=== PATIENT | male | born 1965 ===

== ENCOUNTER 2016-11-09 06:07 | Inpatient (IN) | payer BC, OTHER ==
--- NOTE | 2016-11-09 07:36 | C.PDOC ---
History Of Present Illness 51 yo male w/PMHx of HTN, C-spine herniated disc come inf or evaluation of headache, neck pain, dizziness, intermittent CP, " generalized weakness " developed for past few days. Pt sts, " wake up in AM feeling in pain and weak". Pt admits, taking HTN medication ( carvedilol last dose at 11PM yesterday and Lozartan last dose today at 3AM), and pain medication started few weeks ago- Naproxyn, Flexeril given by PMD for pain. Pt admits, previous hx of neck pain " after had fall accident year ago". Otherwise, pt denies fever, chills, denies worse headache of life, visual changes, focal deficits, denies weakness to B/L LEs, SOB, dyspnea, diaphoresis, palpitation, abd. pain, N/V/D, UTI sx, denies saddle anesthesia, incontinence. Ambulate to ED for evaluation, appears in pain. Time Seen by Provider: 11/09/16 07:19 Chief Complaint (Nursing): Headache History Per: Patient History/Exam Limitations: no limitations Onset/Duration Of Symptoms: Hrs Current Symptoms Are (Timing): Still Present Quality: "Pain" Preceeding Symptoms: denies: Visual Disturbances Associated Symptoms: denies: Blurred Vision, Nausea, Vomiting, Extremity Weakness Recent travel outside of the [place]: No Past Medical History Reviewed: Historical Data, Nursing Documentation, Vital Signs Vital Signs: Last Vital Signs Temp 97.9 F 11/09/16 15:50 Pulse 64 11/09/16 15:50 Resp 18 11/09/16 15:50 BP 117/64 11/09/16 15:50 Pulse Ox 99 11/09/16 15:50 - Medical History PMH: HTN, Hypercholesterolemia Surgical History: Appendectomy Family History: States: Unknown Family Hx - Social History Hx Tobacco Use: No Hx Alcohol Use: No Hx Substance Use: No - Immunization History Hx Tetanus Toxoid Vaccination: No Hx Influenza Vaccination: No Hx Pneumococcal Vaccination: No Review Of Systems Except As Marked, All Systems Reviewed And Found Negative. Constitutional: Positive for: Weakness. Negative for: Fever, Chills Cardiovascular: Negative for: Chest Pain Respiratory: Negative for: Cough, Shortness of Breath, Wheezing Musculoskeletal: Positive for: Neck Pain Skin: Negative for: Rash Neurological: Positive for: Headache, Dizziness. Negative for: Weakness, Numbness Physical Exam - Physical Exam Appears: Well, No Acute Distress Skin: Normal Color, Warm, Dry, No Ecchymosis Head: Normacephalic Eye(s): bilateral: PERRL Ear(s): Bilateral: Normal Nose: No Flaring, No Discharge Oral Mucosa: Moist, No Drooling Throat: No Erythema, No Exudate, No Drooling Neck: Trachea Midline, No Midline Cervical Tenderness, Paracervical Tenderness ( Right sided lateral neck tenderness along trapezium muscle with mod muscle spasm. No midline tenderness. no palpable deformity, no skin changes.), No Step Off Deformity, Supple Cardiovascular: Rhythm Regular, No JVD, Other ((-) carotid bruits B/L) Respiratory: No Decreased Breath Sounds, No Accessory Muscle Use, No Stridor, No Wheezing Gastrointestinal/Abdominal: No Tenderness, No Distention, No Guarding Back: No CVA Tenderness Extremity: No Pedal Edema, No Deformity, No Swelling Neurological/Psych: Oriented x3, Normal Speech, Normal Motor, Normal Sensation, Normal Reflexes ED Course And Treatment - Laboratory Results Result Diagrams: 11/09/16 07:52 11/09/16 07:52 Lab Interpretation: Normal ECG: Interpreted By Me, Viewed By Me (and ED attending) ECG Rhythm: Sinus Bradycardia Interpretation Of ECG: Sinus kanu@48/min, NAD, no acute T wave or ST-T changes O2 Sat by Pulse Oximetry: 100 Pulse Ox Interpretation: Normal - CT Scan/US CT head Other Rad Studies (CT/US): Radiology Report Reviewed CT/US Interpretation: Accession No. : [id number]. Patient Name / ID : DENNIS VELASQUEZ / [id number]. Exam Date : 11/09/2016 08:07:41 ( Approved ). Study Comment : Sex / Age : M / 51Y. Creator : Adele Lombardi. Dictator : Adele Lombardi. Supervisor [place] : Disease Case Manager : Adele العراقي. Approver2 : Report Date : 11/09/2016 08:33:50. My Comment : . PROCEDURE: CT HEAD WITHOUT CONTRAST. HISTORY: headache, dizziness. COMPARISON: A prior CT head report 08/27/2010 is noted. This was reported is unremarkable. Those images are however not available to me in the PAC system at this time. TECHNIQUE: Axial computed tomography images were obtained through the head/brain without intravenous contrast. Radiation dose: Total exam DLP = 882 mGy-cm. This CT exam was performed using one or more of the following dose reduction techniques: Automated exposure control, adjustment of the mA and/or kV according to patient size, and/or use of iterative reconstruction technique. FINDINGS: HEMORRHAGE: No intracranial hemorrhage. BRAIN: No mass effect or edema. No atrophy or chronic microvascular ischemic changes. VENTRICLES: Unremarkable. No hydrocephalus. CALVARIUM: Unremarkable. PARANASAL SINUSES: Minimal ethmoidal sinus mucosal thickening. No air-fluid levels. MASTOID AIR CELLS: Unremarkable as visualized. No inflammatory changes. OTHER FINDINGS: Atherosclerotic calcification - vertebral basilar arteries. IMPRESSION: No intracranial hemorrhage or mass effect . Trace ethmoidal sinus inflammatory changes. Vertebrobasilar arterial atherosclerotic like vascular calcification C-spine Other Rad Studies (CT/US): Radiology Report Reviewed CT/US Interpretation: IMPRESSION: Cervical spondylosis and 1 disc disease - most pronounced at C4-5 and C5-6. No spinal stenosis. No fracture or lytic lesion. Cervical spine straightening -positioning and/or spasm Progress Note: On re-eavluation, pt remained stable, not in any apparent distress. Afebrile, hemodynamicaly stable. non-toxic. neuorlogicaly intact. Blood work review and appears without acute abnormalities. EKG- Sinus kanu @ [address] head review and appears abnormal (+)VB atherosclerotic ds. Case discussed with ED attending [facility]. Case discussed with and admission arranged to tele. resident notified about admission, per request. Disposition - Disposition Disposition: HOSPITALIZED Disposition Time: 08:57 Condition: STABLE - Clinical Impression Clinical Impression: Symptomatic bradycardia, Arterial atherosclerosis - PA / WELFARE SPECIALIST / Resident Statement MD/DO has reviewed & agrees with the documentation as recorded. - Scribe Statement The provider has reviewed the documentation as recorded by the Scribe SM All medical record entries made by the Scribe were at my direction and personally dictated by me. I have reviewed the chart and agree that the record accurately reflects my personal performance of the history, physical exam, medical decision making, and the department course for this patient. I have also personally directed, reviewed, and agree with the discharge instructions and disposition.
[2016-11-09] MEDS ORDERED: diaZEpam 10 mg/2 ml Inj IVP STA (07:38)
[2016-11-09] MEDS ORDERED: diaZEpam 10 mg/2 ml Inj ONE (07:50)
[2016-11-09] MEDS ORDERED: Sodium Chloride 0.9% 1,000 ML IV ONE (08:03)
[2016-11-09 08:04] LABS: BASO % 0.4 % (0.0-2.0); EOS # 0.1 K/uL (0.0-0.7); HEMATOCRIT 42.2 % (35.0-51.0); LYMPH # 2.4 K/uL (1.0-4.3); LYMPH % 38.4 % (20.0-40.0); MEAN CELL VOLUME 86.6 fL (80.0-94.0); MEAN CORPUSCULAR HEMOGLOBIN 30.3 pg (27.0-31.0); MEAN PLATELET VOLUME 8.6 fL (7.2-11.7); MONO # 0.7 K/uL (0.0-0.8); MONO % 10.5 % (0.0-10.0); RED CELL DISTRIBUTION WIDTH 13.8 % (11.5-14.5); WHITE BLOOD COUNT 6.3 K/uL (4.8-10.8)
[2016-11-09 08:13] LABS: CHLORIDE 98 mmol/L (98-107); SODIUM 135 mmol/L (132-148)
[2016-11-09 08:14] LABS: POTASSIUM 3.7 mmol/L (3.6-5.2); URINE BILIRUBIN NEGATIVE (NEGATIVE); URINE BLOOD NEGATIVE (NEGATIVE); URINE COLOR Straw (YELLOW); URINE GLUCOSE (UA) NORMAL (Normal); URINE KETONE NEGATIVE (NEGATIVE); URINE LEUKOCYTE ESTERASE NEG Leu/uL (Negative); URINE PROTEIN NEGATIVE (NEGATIVE); URINE UROBILINOGEN NORMAL mg/dL (0.2-1.0)
[2016-11-09 08:16] LABS: ALB/GLOB RATIO 1.2 (1.0-2.1); ALKALINE PHOSPHATASE 50 U/L (38-126); ALT/SGPT 53 U/L (21-72); AST/SGOT 40 U/L (17-59); BILIRUBIN,TOTAL 0.8 mg/dL (0.2-1.3); BLOOD UREA NITROGEN 13 mg/dL (9-20); CARBON DIOXIDE 28 mmol/L (22-30); GFR AFRICAN-AMERICAN > 60; TOTAL PROTEIN 7.9 g/dL (6.3-8.3)
[2016-11-09 08:17] LABS: CALCIUM 9.1 mg/dl (8.6-10.4); GLUCOSE,RANDOM 110 mg/dL (75-110)
--- NOTE | 2016-11-09 08:41 | CT ---
PROCEDURE: CT HEAD WITHOUT CONTRAST. HISTORY: headache, dizziness COMPARISON: A prior CT head report 08/27/2010 is noted. This was reported is unremarkable. Those images are however not available to me in the PAC system at this time TECHNIQUE: Axial computed tomography images were obtained through the head/brain without intravenous contrast. Radiation dose: Total exam DLP = 882 mGy-cm. This CT exam was performed using one or more of the following dose reduction techniques: Automated exposure control, adjustment of the mA and/or kV according to patient size, and/or use of iterative reconstruction technique. FINDINGS: HEMORRHAGE: No intracranial hemorrhage. BRAIN: No mass effect or edema. No atrophy or chronic microvascular ischemic changes. VENTRICLES: Unremarkable. No hydrocephalus. CALVARIUM: Unremarkable. PARANASAL SINUSES: Minimal ethmoidal sinus mucosal thickening. No air-fluid levels MASTOID AIR CELLS: Unremarkable as visualized. No inflammatory changes. OTHER FINDINGS: Atherosclerotic calcification - vertebral basilar arteries IMPRESSION: No intracranial hemorrhage or mass effect . Trace ethmoidal sinus inflammatory changes Vertebrobasilar arterial atherosclerotic like vascular calcification
[2016-11-09 08:47] LABS: THYROID STIMULATING HORMONE 4.99 mIU/L (0.46-4.68)
[2016-11-09] MEDS ORDERED: Sodium Chloride 0.9% 1,000 ML ONE ×2 (09:06→11:01)
--- NOTE | 2016-11-09 09:13 | CT ---
PROCEDURE: CT Cervical Spine without contrast HISTORY: Neck pain COMPARISON: None available. TECHNIQUE: Axial computed tomography images were obtained of the cervical spine without the use of intravenous contrast. Coronal and sagittal reformatted images were created and reviewed. Radiation dose: Total exam DLP = 486 mGy-cm. This CT exam was performed using one or more of the following dose reduction techniques: Automated exposure control, adjustment of the mA and/or kV according to patient size, and/or use of iterative reconstruction technique. FINDINGS: VERTEBRAE: No fracture. Cervical lordotic straightening. No subluxation. No destructive bony lesion. Endplate spondylosis C4-5 C5-6 DISCS/SPINAL CANAL/NEURAL FORAMINA: No significant central canal or neural foraminal stenosis. C4-5 and C5-6 disc space narrowing. PARASPINAL SOFT TISSUES: Anterior C3-4 intervertebral disc bordering ossification a nearly anterior bridging osteophyte here OTHER FINDINGS: None. IMPRESSION: Cervical spondylosis and 1 disc disease -most pronounced at C4-5 and C5-6. No spinal stenosis No fracture or lytic lesion. Cervical spine straightening -positioning and/or spasm.
--- NOTE | 2016-11-09 09:33 | RAD ---
HISTORY: dizziness COMPARISON: 05/07/2015 TECHNIQUE: Chest PA and lateral FINDINGS: LUNGS: No active pulmonary disease. PLEURA: No significant pleural effusion identified. No pneumothorax apparent. CARDIOVASCULAR: Normal. OSSEOUS STRUCTURES: Thoracic spondylosis VISUALIZED UPPER ABDOMEN: Normal. OTHER FINDINGS: None. IMPRESSION: No active disease.
[2016-11-09] MEDS: Sodium Chloride 0.9% 1,000 ML IV SCH ×2 (11:03→22:21)
--- NOTE | 2016-11-09 11:11 | CP.PCM.HP ---
History of Present Illness - History of Present Illness History of Present Illness: CC: Head pressure and fatigue HPI: 51 y/o male with hx of HTN, high cholesterol, vit D deficiency, and chronic neck pain presents to ED with complaints of head pressure and feelings of extreme fatigue. Patient stated the head pressure has occurred in the overnight hours, around 3am, for the past three to four nights, lasting for about two hours. Patient denies headache, dizziness, or LOC. Pt states he believes it is due to his blood pressure and it resolves with taking his medication. Pt also complains of extreme fatigue that has lasted for the past three months. Pt went to his PMD two months ago and was only found to have Vitamin D deficiency. Pt stated that his thyroid hormone levels were normal at the time. Pt complains of nausea and constipation. Pt states he has not had a bowel movement in 3-4 days. Pt denies Chest Pain, SOB, cough, abdominal pain, paresthesia, urinary frequency, dysuria, vomiting, and diarrhea. PMD: Dr. Kiko Hernandez HX: HTN, High cholesterol, Vit D deficiency, chronic neck pain Allergies: Levaquin (urticaria) Surgeries: -Appendectomy 11 yrs old -Hand surgery 4 months ago Family HX: -Brother of Lymphoma -Daughter with thyroid cancer Social HX: -Works at a [email or web address] -Has two children -Denies tobacco, alcohol, or illicit drug use Home Medications: -Naproxen 500mg PO PRN -Cyclobenzaprine 10mg BID PRN -Losartan/HCTZ 25/100mg PO daily -Carvedilol 12.5mg PO BID -Vitamin D 5000 U Present on Admission - Present on Admission Any Indicators Present on Admission: No History of DVT/PE: No History of Uncontrolled Diabetes: No Urinary Catheter: No Decubitus Ulcer Present: No Past Patient History - Infectious Disease Hx of Infectious Diseases: None - Past Social History Smoking Status: Never Smoked - CARDIAC Hx Hypercholesterolemia: Yes Hx Hypertension: Yes - GASTROINTESTINAL Other/Comment: patient stated he had endo and colonoscopy done in past with results of: "Inflammed stomach" gastritis??? - PSYCHIATRIC Hx Substance Use: No - SURGICAL HISTORY Hx Appendectomy: Yes - ANESTHESIA Hx Anesthesia: Yes Hx Anesthesia Reactions: No Meds Allergies/Adverse Reactions: Allergies Allergy/AdvReac Type Severity Reaction Status Date / Time levofloxacin [From Levaquin] Allergy Intermediate Verified 11/09/16 06:28 Results - Vital Signs Recent Vital Signs: Last Vital Signs Temp 97.6 F 11/09/16 11:01 Pulse 57 L 11/09/16 11:01 Resp 18 11/09/16 11:01 BP 134/75 11/09/16 11:01 Pulse Ox 98 11/09/16 11:01 - Labs Result Diagrams: 11/09/16 07:52 11/09/16 07:52 Labs: Laboratory Results - last 24 hr 11/09/16 11/09/16 11/09/16 07:52 07:52 07:52 WBC 6.3 RBC 4.88 Hgb 14.8 Hct 42.2 MCV 86.6 D MCH 30.3 MCHC 35.0 RDW 13.8 Plt Count 214 MPV 8.6 Neut % (Auto) 49.7 L Lymph % (Auto) 38.4 [place] % (Auto) 10.5 H Eos % (Auto) 1.0 Baso % (Auto) 0.4 Neut # 3.2 Lymph # 2.4 [place] # 0.7 Eos # 0.1 Baso # 0.0 Sodium 135 Potassium 3.7 Chloride 98 Carbon Dioxide 28 Anion Gap 14 BUN 13 Creatinine 1.0 Est GFR ( Amer) > 60 Est GFR (Non-Af Amer) > 60 Random Glucose 110 Calcium 9.1 Total Bilirubin 0.8 AST 40 ALT 53 Alkaline Phosphatase 50 Troponin I < 0.0120 Total Protein 7.9 Albumin 4.2 Globulin 3.7 Albumin/Globulin Ratio 1.2 TSH 3rd Generation 4.99 H Urine Color Straw Urine Clarity Clear Urine pH 7.0 Ur Specific [place] 1.008 Urine Protein Negative Urine Glucose (UA) Normal Urine Ketones Negative Urine Blood Negative Urine Nitrate Negative Urine Bilirubin Negative Urine Urobilinogen Normal Ur Leukocyte Esterase Neg Assessment & Plan - Assessment and Plan (Free Text) Assessment: Bradycardia NS @100 cc/hr given 1 L NS in ED (HR increased from 48 to 60) hold home medication Carvedilol cardiology consulted, Dr. Yancey, help appreciated admitted to telemetry Hx HTN continue home medication Losartan/HCTZ 25/100mg PO daily Chronic Neck Pain CT C Spine: cervical spondylosis and 1 disc disease-most pronounced at C4-5 and C5-6. No spinal stenosis. No fracture or lytic lesion. Cervical spine straightening- positioning and/or spasm patient given Valium 5mg and Toradol 30 mg in ED Tylenol 650mg PRN for moderate pain Head Pressure CT head: no intracranial hemorrhage or mass effect, trace ethmoidal sinus inflammatory changes. Vertebrobasilar arterial atherosclerotic like vascular calcification. Elevated TSH TSH: 4.99 f/u free T3, T4 Vitamin D deficiency Prophylactic Measures SCDs Pepcid 20 mg po BID
[2016-11-09 20:07] LABS: CHLORIDE 102 mmol/L (98-107); POTASSIUM 3.7 mmol/L (3.6-5.2); SODIUM 138 mmol/L (132-148)
[2016-11-09 20:09] LABS: BILIRUBIN,TOTAL 0.5 mg/dL (0.2-1.3); GFR AFRICAN-AMERICAN > 60
[2016-11-09 20:10] LABS: ALKALINE PHOSPHATASE 44 U/L (38-126); ALT/SGPT 52 U/L (21-72); AST/SGOT 32 U/L (17-59); BLOOD UREA NITROGEN 13 mg/dL (9-20); CARBON DIOXIDE 25 mmol/L (22-30); GLUCOSE,RANDOM 92 mg/dL (75-110); PHOSPHOROUS 3.4 mg/dL (2.5-4.5); TOTAL PROTEIN 7.4 g/dL (6.3-8.3)
[2016-11-09 20:11] LABS: CALCIUM 9.1 mg/dl (8.6-10.4); MAGNESIUM 1.8 mg/dL (1.6-2.3)
[2016-11-09 20:26] LABS: FT3 3.47 pg/mL (2.77-5.27)
[2016-11-09] MEDS ORDERED: Home Med 1 UNIT (Naproxen [Naprosyn] 500 MG) PO SCH (22:00)
--- NOTE | 2016-11-09 22:44 | CP.PCM.PN ---
Subjective - Date & Time of Evaluation Date of Evaluation: 11/09/16 Time of Evaluation: 18:30 - Subjective Subjective: Patient seen and evaluated Bardycardia and dizziness B blockers held Check ECHO Will follow Objective - Vital Signs/Intake and Output Vital Signs (last 24 hours): Temp Pulse Resp BP Pulse Ox 97.9 F 62 18 117/64 100 11/09/16 15:50 11/09/16 18:00 11/09/16 15:50 11/09/16 15:50 11/09/16 17:45 Intake and Output: 11/09/16 11/10/16 18:59 06:59 Intake Total 820 Balance 820 - Medications Medications: Current Medications Acetaminophen (Tylenol 325mg Tab) 650 mg PO Q6 PRN PRN Reason: Pain, moderate (4-7) Famotidine (Pepcid) 20 mg PO BID [facility] Last Admin: 11/09/16 17:39 Dose: 20 mg Hydrochlorothiazide (Hydrodiuril) 25 mg PO DAILY [facility] Sodium Chloride (Sodium Chloride 0.9%) 1,000 mls @ 100 mls/hr IV .Q10H [facility] Last Admin: 11/09/16 22:21 Dose: Not Given Losartan Potassium (Cozaar) 100 mg PO DAILY [facility] Pneumococcal Polyvalent Vaccine (Pneumovax 23 Vaccine) 0.5 ml IM .ONCE ONE Stop: 11/11/16 10:01 - Labs Labs: 11/09/16 07:52 11/09/16 19:44
[2016-11-09 23:51] VITALS: RESP 20
[2016-11-10] MEDS: Sodium Chloride 0.9% 1,000 ML IV SCH (06:14)
[2016-11-10] MEDS ORDERED: Enoxaparin 40 mg Syringe SC SCH (10:00)
[2016-11-10 15:48] VITALS: BP 152/80; PULSE 62; TEMP 97.6; O2SAT 99
--- NOTE | 2016-11-10 18:34 | CP.PCM.DIS ---
Provider - Provider Date of Admission: 11/09/16 09:00 Attending physician: Steven Pompa Jr, MD Consults: Dr. Yancey--cardiology Time Spent in preparation of Discharge (in minutes): 34 Diagnosis - Discharge Diagnosis (1) Symptomatic bradycardia Status: Acute (2) History of hypertension Status: Chronic (3) Chronic neck pain Status: Chronic (4) Pressure in head Status: Acute (5) Elevated TSH Status: Acute (6) Prophylactic measure Status: Acute Hospital Course - Lab Results Lab Results: Most Recent Lab Values WBC 6.3 K/uL (4.8-10.8) 11/09/16 07:52 RBC 4.88 Mil/uL (4.40-5.90) 11/09/16 07:52 Hgb 14.8 g/dL (12.0-18.0) 11/09/16 07:52 Hct 42.2 % (35.0-51.0) 11/09/16 07:52 MCV 86.6 fL (80.0-94.0) D 11/09/16 07:52 MCH 30.3 pg (27.0-31.0) 11/09/16 07:52 MCHC 35.0 g/dL (33.0-37.0) 11/09/16 07:52 RDW 13.8 % (11.5-14.5) 11/09/16 07:52 Plt Count 214 K/uL (130-400) 11/09/16 07:52 MPV 8.6 fL (7.2-11.7) 11/09/16 07:52 Neut % (Auto) 49.7 % (50.0-75.0) L 11/09/16 07:52 Lymph % (Auto) 38.4 % (20.0-40.0) 11/09/16 07:52 [place] % (Auto) 10.5 % (0.0-10.0) H 11/09/16 07:52 Eos % (Auto) 1.0 % (0.0-4.0) 11/09/16 07:52 Baso % (Auto) 0.4 % (0.0-2.0) 11/09/16 07:52 Neut # 3.2 K/uL (1.8-7.0) 11/09/16 07:52 Lymph # 2.4 K/uL (1.0-4.3) 11/09/16 07:52 [place] # 0.7 K/uL (0.0-0.8) 11/09/16 07:52 Eos # 0.1 K/uL (0.0-0.7) 11/09/16 07:52 Baso # 0.0 K/uL (0.0-0.2) 11/09/16 07:52 Sodium 138 mmol/L (132-148) 11/09/16 19:44 Potassium 3.7 mmol/L (3.6-5.2) 11/09/16 19:44 Chloride 102 mmol/L (98-107) 11/09/16 19:44 Carbon Dioxide 25 mmol/L (22-30) 11/09/16 19:44 Anion Gap 15 (10-20) 11/09/16 19:44 BUN 13 mg/dL (9-20) 11/09/16 19:44 Creatinine 1.1 mg/dL (0.8-1.5) 11/09/16 19:44 Est GFR ( Amer) > 60 11/09/16 19:44 Est GFR (Non-Af Amer) > 60 11/09/16 19:44 Random Glucose 92 mg/dL (75-110) 11/09/16 19:44 Calcium 9.1 mg/dl (8.6-10.4) 11/09/16 19:44 Phosphorus 3.4 mg/dL (2.5-4.5) 11/09/16 19:44 Magnesium 1.8 mg/dL (1.6-2.3) 11/09/16 19:44 Total Bilirubin 0.5 mg/dL (0.2-1.3) 11/09/16 19:44 AST 32 U/L (17-59) 11/09/16 19:44 ALT 52 U/L (21-72) 11/09/16 19:44 Alkaline Phosphatase 44 U/L (38-126) 11/09/16 19:44 Troponin I < 0.0120 ng/mL (0.00-0.120) 11/09/16 07:52 Total Protein 7.4 g/dL (6.3-8.3) 11/09/16 19:44 Albumin 3.7 g/dL (3.5-5.0) 11/09/16 19:44 Globulin 3.7 gm/dL (2.2-3.9) 11/09/16 19:44 Albumin/Globulin Ratio 1.0 (1.0-2.1) 11/09/16 19:44 Free T4 1.17 ng/dL (0.78-2.19) 11/09/16 19:44 Free T3 pg/mL 3.47 pg/mL (2.77-5.27) 11/09/16 19:44 TSH 3rd Generation 4.99 mIU/L (0.46-4.68) H 11/09/16 07:52 Urine Color Straw (YELLOW) 11/09/16 07:52 Urine Clarity Clear (Clear) 11/09/16 07:52 Urine pH 7.0 (5.0-8.0) 11/09/16 07:52 Ur Specific [place] 1.008 (1.003-1.030) 11/09/16 07:52 Urine Protein Negative mg/dL (NEGATIVE) 11/09/16 07:52 Urine Glucose (UA) Normal mg/dL (Normal) 11/09/16 07:52 Urine Ketones Negative mg/dL (NEGATIVE) 11/09/16 07:52 Urine Blood Negative (NEGATIVE) 11/09/16 07:52 Urine Nitrate Negative (NEGATIVE) 11/09/16 07:52 Urine Bilirubin Negative (NEGATIVE) 11/09/16 07:52 Urine Urobilinogen Normal mg/dL (0.2-1.0) 11/09/16 07:52 Ur Leukocyte Esterase Neg Elena/uL (Negative) 11/09/16 07:52 - Hospital Course Hospital Course: On admission: "51 y/o male with hx of HTN, high cholesterol, vit D deficiency, and chronic neck pain presents to ED with complaints of head pressure and feelings of extreme fatigue. Patient stated the head pressure has occurred in the overnight hours, around 3am, for the past three to four nights, lasting for about two hours. Patient denies headache, dizziness, or LOC. Pt states he believes it is due to his blood pressure and it resolves with taking his medication. Pt also complains of extreme fatigue that has lasted for the past three months. Pt went to his PMD two months ago and was only found to have Vitamin D deficiency. Pt stated that his thyroid hormone levels were normal at the time. Pt complains of nausea and constipation. Pt states he has not had a bowel movement in 3-4 days. Pt denies Chest Pain, SOB, cough, abdominal pain, paresthesia, urinary frequency , dysuria, vomiting, and diarrhea." Hospital Course: Patient admitted for symptomatic bradycardia. Dr. Yancey, sergeant of corrections consulted. EKG and telemetry monitoring showed bradycardia on admission. Patient's home medication Coreg was held. Thyroid studies showed elevated TSH at 4.99 but free T3 and T4 were within normal limits. At time of discharge, patient reports feeling much improved with symptoms resolved. At time of discharge, patient's heart rate was in the 60s on the radiation monitor. Patient instructed to stop the Coreg and to follow up with his PMD and with Dr. Yancey. Discharge Exam - Head Exam Head Exam: ATRAUMATIC, NORMOCEPHALIC - Eye Exam Eye Exam: EOMI, PERRL - ENT Exam ENT Exam: Mucous Membranes Moist - Respiratory Exam Respiratory Exam: Clear to PA & Lateral. absent: Rales, Rhonchi, Wheezes - Cardiovascular Exam Cardiovascular Exam: REGULAR RHYTHM, +S1, +S2 - GI/Abdominal Exam GI & Abdominal Exam: Normal Bowel Sounds, Soft. absent: Tenderness - Extremities Exam Extremities exam: pedal pulses present - Neurological Exam Neurological exam: Alert, CN II-XII Intact, Oriented x3 - Psychiatric Exam Psychiatric exam: Normal Affect, Normal Mood - Skin Skin Exam: Dry, Intact, Normal Color, Warm Discharge Plan - Follow Up Plan Condition: STABLE Disposition: HOME/ ROUTINE Instructions: Coronary Artery Disease (DC), Heart Healthy Diet (DC), Bradycardia (DC) Additional Instructions: Please follow up with Dr. Hoover within 1 week of discharge. STOP taking the Carvedilol. You can resume all of your other medications. Please follow up with a sergeant of corrections. We have provided the contact information for one in case you are not able to find one. If there are any new or worsening symptoms, please return to the emergency room. Por favor, siga con el Dr. Hoover dentro de carolann semana de liv. PARE de teodora el Carvedilol. Puede reanudar todos khanh otros medicamentos. Por favor, siga con un cardilogo. Hemos proporcionado la informacin de contacto para brittany en christian de que no sea capaz de encontrar brittany. Si hay sntomas nuevos o que empeoran, por favor regrese a la filemon de emergencias. Referrals: Lucio Yancey MD [Staff Provider] - Adalberto Hoover MD [Medical Doctor] -
[2016-11-11] MEDS ORDERED: Pneumococcal 23-Valent Vaccine IM ONE (10:00)
--- NOTE | 2016-11-11 10:48 | CARD ---
APPROVED REPORT EXAM: Two-dimensional and M-mode echocardiogram with Doppler and color Doppler. Other Information Quality : GoodRhythm : Bradycardia INDICATION ATHEROSCLEROSIS RISK FACTORS Hypertension Hyperlipidemia 2D DIMENSIONS IVSd0.8 (0.7-1.1cm)LVDd5.4 (3.9-5.9cm) PWd0.7 (0.7-1.1cm)LVDs3.8 (2.5-4.0cm) FS (%) 29.8 %LVEF (%)56.4 (>50%) M-Mode DIMENSIONS Left Atrium (MM)4.46 (2.5-4.0cm)Aortic Root3.22 (2.2-3.7cm) Aortic Cusp Exc.2.16 (1.5-2.0cm) Mitral Valve MV E Qddicfhc504.9cm/sMV A Yptepkmd09.3cm/sE/A ratio1.2 TDI E/Lateral E'0.0E/Medial E'0.0 Tricuspid Valve TR Peak Hlkdotph788ei/sTR Peak Gr.[id number] LEFT VENTRICLE The left ventricle is normal size. There is normal left ventricular wall thickness. The left ventricular function is normal. The left ventricular ejection fraction is within the normal range. No regional wall motion abnormalities noted. The left ventricular diastolic function is normal. No left ventricle thrombus noted on this study. There is no ventricular septal defect visualized. There is no left ventricular aneurysm. There is no mass noted in the left ventricle. RIGHT VENTRICLE The right ventricle is normal size. There is normal right ventricular wall thickness. The right ventricular systolic function is normal. ATRIA The left atrium size is normal. The right atrium size is normal. The interatrial septum is intact with no evidence for an atrial septal defect. AORTIC VALVE The aortic valve is normal in structure and function. No aortic regurgitation is present. There is no aortic valvular stenosis. There is no aortic valvular vegetation. MITRAL VALVE The mitral valve is normal in structure and function. There is no evidence of mitral valve prolapse. There is no mitral valve stenosis. There is mild mitral valve regurgitation noted. TRICUSPID VALVE The tricuspid valve is normal in structure and function. There is mild tricuspid valve regurgitation noted. Estimated PA systolic pressure is 35 mm Hg. There is no tricuspid valve prolapse or vegetation. There is no tricuspid valve stenosis. PULMONIC VALVE The pulmonary valve is normal in structure and function. There is no pulmonic valvular regurgitation. There is no pulmonic valvular stenosis. GREAT VESSELS The aortic root is normal in size. The ascending aorta is mildly dilated at 3.7 cm. The pulmonary artery is normal. The IVC is dilated in size and collapses >50% with inspiration. PERICARDIAL EFFUSION The pericardium appears normal. There is no pleural effusion. <Conclusion> Normal LV systolic function. The ascending aorta is mildly dilated at 3.7 cm. Normal Doppler.
--- NOTE | 2016-11-11 10:51 | CARD ---
APPROVED REPORT EKG Measurement Heart [id number] IN [id number] <Conclusion> Sinus bradycardia Otherwise normal ECG
== END 2016-11-10 19:42 | disposition home or self-care (01) | DRG 310 ==
LOC: C.ER 06:07 → C.9E 09:00 → C.5S 11:26
PROVIDERS: ADMIT Internal Medicine; ATTEND Internal Medicine
DX: R00.1 Bradycardia, unspecified (principal); M50.20 Other cervical disc displacement, unspecified cervical region; I67.2 Cerebral atherosclerosis; I10 Essential (primary) hypertension; E55.9 Vitamin D deficiency, unspecified; E78.00 Pure hypercholesterolemia, unspecified; R42 Dizziness and giddiness